=== PATIENT | male | born 1960 | race Caucasian/White ===

== ENCOUNTER → 2017-03-29 | Outpatient (CLI) | payer OTHER | LOC: CIMAGING 08:24 | PROVIDERS: ATTEND Family Medicine | DX: R42 Dizziness and giddiness (principal); R51 Headache | CPT/HCPCS: 70450-PO ==

== ENCOUNTER → 2017-07-18 | Outpatient (CLI) | payer OTHER | LOC: CIMAGING 16:26 | PROVIDERS: ATTEND Family Medicine | DX: R30.0 Dysuria (principal); R31.9 Hematuria, unspecified | CPT/HCPCS: 74019-PO ==